=== PATIENT | male | born 1965 | race Caucasian/White ===

== ENCOUNTER 2018-05-08 05:30 | Day surgery (SDC) | payer OTHER ==
[2018-05-08] MEDS ORDERED: PERCOCET 5-3251 EACH PO (12:41)
[2018-05-08] MEDS ORDERED: NEURONTIN800 MG PO (12:41)
[2018-05-08] MEDS ORDERED: POLY119PG PO (12:41)
[2018-05-08] MEDS ORDERED: SURFAK240 M1 PO (12:41)
== END 2018-05-08 17:25 | disposition home or self-care (01) ==
LOC: CIR.AMB 05:30
DX: K40.90 Unilateral inguinal hernia, without obstruction or gangrene, not specified as recurrent (principal); K42.0 Umbilical hernia with obstruction, without gangrene; K43.6 Other and unspecified ventral hernia with obstruction, without gangrene